=== PATIENT | female | born 1990 | race African-American/Black ===

== ENCOUNTER 2022-07-29 01:55 | Emergency (ER) | payer SELFPAY ==
[2022-07-29] MEDS ORDERED: Ketorolac Tromethamine 30 MG/ML VIAL ONE (03:22)
== END 2022-07-29 03:57 | disposition home or self-care (01) ==
LOC: CSHERS 01:55
DX: K02.9 Dental caries, unspecified (principal); F17.290 Nicotine dependence, other tobacco product, uncomplicated
CPT/HCPCS: 96372; 99282; J1885

== ENCOUNTER 2023-10-20 18:27 | Emergency (ER) | payer SELFPAY | END 2023-10-20 22:40 | disposition home or self-care (01) | LOC: CSHERS 18:27 | DX: J20.9 Acute bronchitis, unspecified (principal); F17.290 Nicotine dependence, other tobacco product, uncomplicated | CPT/HCPCS: 71045 ==

== ENCOUNTER 2023-10-25 15:44 | Emergency (ER) | payer SELFPAY | END 2023-10-25 16:41 | disposition home or self-care (01) | LOC: CSHERS 15:44 | DX: J01.90 Acute sinusitis, unspecified (principal); B96.89 Other specified bacterial agents as the cause of diseases classified elsewhere; F17.290 Nicotine dependence, other tobacco product, uncomplicated | CPT/HCPCS: 99283 ==

== ENCOUNTER 2024-08-01 00:23 | Emergency (ER) | payer SELFPAY ==
[2024-08-01] MEDS ORDERED: Prochlorperazine 10 MG/2 ML VIAL ONE (02:55)
[2024-08-01] MEDS ORDERED: Ketorolac Tromethamine 30 MG (1 mL) VIAL ONE (02:55)
[2024-08-01] MEDS ORDERED: diphenhydrAMINE 50 MG/ML VIAL ONE (02:55)
[2024-08-01 03:57] LABS: #Basophils 0.06 10x3/uL (0.0-0.2); #Eosinophils 0.44 10x3/uL (0.0-0.5); #Monocytes 0.57 10x3/uL (0.0-1.1); #Neutrophils 3.79 10x3/uL (1.5-8.4); %Basophils 0.8 % (0.0-2.0); %Eosinophils 5.7 % (0.0-6.0); %Lymphocytes 36.8 % (18.0-47.0); %Monocytes 7.4 % (0.0-10.0); Anion Gap 13 mmol/L (10-20); BUN (Urea Nitrogen) 13 mg/dL (7.0-18.7); Calc. Creatinine Clearance 0 mL/min (70-130); Calcium 9.3 mg/dL (7.8-10.44); Carbon Dioxide 23 mmol/L (22-29); Chloride 107 mmol/L (98-107); Estimated GFR 108; Glucose 90 mg/dL (70-105); Hematocrit 41.8 % (34.9-44.5); Hemoglobin 13.5 g/dL (12.0-15.5); Mean Corpuscular HGB CONC 32.3 g/dL (32.0-36.0); Mean Corpuscular Hemoglobin 32.4 pg (27.0-33.0); Mean Corpuscular Volume 100.2 fL (81.6-98.3); Mean Platelet Volume 8.8 fL (7.4-10.4); Platelet Count 221 10x3/uL (150-450); Potassium 3.6 mmol/L (3.5-5.1); RBC Distribution Width 13.2 % (11.5-14.5); Red Blood Cell (RBC) Count 4.17 10x6/uL (3.90-5.03); Sodium 139 mmol/L (136-145); White Blood Cell (WBC) Count 7.7 10x3/uL (3.5-10.5)
== END 2024-08-01 04:54 | disposition home or self-care (01) ==
LOC: CSHERS 00:23
DX: J01.00 Acute maxillary sinusitis, unspecified (principal); F17.290 Nicotine dependence, other tobacco product, uncomplicated
CPT/HCPCS: 71045; 80048; 83735; 85025; 87428; 96374; 96375; J0780; J1200; J1885